=== PATIENT | female | born 1935 | race Caucasian/White ===

== ENCOUNTER → 2016-09-30 | Outpatient (CLI) | payer MEDICARE ==
[~2016-09-30] MED LIST: ANAS1TAB PO; ARIM1TAB PO; ASPI81 PO; CALC500 PO; CENTTAB9 PO; COUM3TAB PO; DILT180C56 PO; HYDR-3533 PO; HYDR12.56 PO; METO100T9 PO; OMEGCAP21 PO; RAMI10CA PO; ROBA500T PO; SIMV20 PO; TAB-TAB PO; TUMS500C CHEW; ULTR50TA PO; ZOFR4TAB PO
[2016-09-30 13:52] LABS: MEAN CORPUSCULAR HEMOGLOBIN 29.6 PG (27.0-34.0); MEAN CORPUSCULAR HGB CONC 33.7 % (32.0-36.0); PLATELET COUNT 238 TH/MM3 (150-450); RED CELL DISTRIBUTION WIDTH 14.5 % (11.6-17.2); REVIEW FLAG FINAL; WHITE BLOOD COUNT 6.4 TH/MM3 (4.0-11.0)
[2016-09-30 14:16] LABS: ALT (GPT) 21 U/L (10-53); ANION GAP 6 MEQ/L (5-15); AST (GOT) 14 U/L (15-37); BICARBONATE 26.6 MEQ/L (21.0-32.0); BLOOD UREA NITROGEN 17 MG/DL (7-18); CHLORIDE 104 MEQ/L (98-107); GLOMERULAR FILTRATION RATE 62 ML/MIN (>89); GLUCOSE,FASTING 87 MG/DL (74-99); SODIUM (NA) 137 MEQ/L (136-145)
[2016-09-30 14:19] LABS: ALKALINE PHOSPHATASE 69 U/L (45-117); HDL CHOLESTEROL 66.1 MG/DL (40.0-60.0); LDL CHOLESTEROL 74 MG/DL (0-99); TOTAL BILIRUBIN ADULT 0.5 MG/DL (0.2-1.0)
== END ==
LOC: PLAB 08:21
PROVIDERS: ATTEND Internal Medicine
DX: I10 Essential (primary) hypertension (principal); E78.5 Hyperlipidemia, unspecified
CPT/HCPCS: 36415; 80053; 80061; 85027

== ENCOUNTER → 2016-11-23 | Outpatient (CLI) | payer MEDICARE ==
[2016-11-23 09:44] LABS: HEMATOCRIT 36.6 % (35.0-46.0); MEAN CELL VOLUME 89.8 FL (80.0-100.0); MEAN CORPUSCULAR HEMOGLOBIN 30.2 PG (27.0-34.0); MEAN CORPUSCULAR HGB CONC 33.6 % (32.0-36.0); PLATELET COUNT 244 TH/MM3 (150-450); RED BLOOD COUNT 4.07 MIL/MM3 (4.00-5.30); RED CELL DISTRIBUTION WIDTH 14.3 % (11.6-17.2); REVIEW FLAG FINAL
[2016-11-23 10:31] LABS: BICARBONATE 29.6 MEQ/L (21.0-32.0); POTASSIUM 3.9 MEQ/L (3.5-5.1)
== END ==
LOC: PLAB 07:54
PROVIDERS: ATTEND Internal Medicine Interventional Cardiology
DX: I48.0 Paroxysmal atrial fibrillation (principal); I11.9 Hypertensive heart disease without heart failure; E78.00 Pure hypercholesterolemia, unspecified
CPT/HCPCS: 36415; 80048; 80061; 84450; 84460; 85027

== ENCOUNTER 2017-01-28 14:49 | Emergency (ER) | payer MEDICARE ==
[~2017-01-28 14:49] MED LIST changes: -HYDR-3533 PO; -ROBA500T PO; -ZOFR4TAB PO
[2017-01-28 14:51] VITALS: BP 167/73; PULSE 60; RESP 20; TEMP 97.7; O2SAT 98
--- NOTE | 2017-01-28 16:58 | PD ---
HPI Chief Complaint: Fall Time Seen by Provider: 16:58 Travel History International Travel<30 days: No Contact w/Intl Traveler<30days: No Traveled to known affect area: No History of Present Illness HPI 82-year-old female with a history of hypertension, CAD, anticoagulated on Coumadin presents to the emergency department for evaluation of right humerus fracture that occurred about 7 hours ago. The patient states that she was taking her to an appointment at the [facility] when she walked into the foyer and slipped on a puddle of water. States that she landed on her right side. States that she landed on her right shoulder but also injured her left hand and left knee. States that she did not hit her head or lose consciousness. She states that she was seen in the emergency department there at the hospital after the fall and was diagnosed with a right humeral head fracture. They also x-rayed her left hand which was unremarkable. States that she was placed in a splint and told to returned to her home town emergency department immediately so that she could see an orthopedic surgeon. She complains of pain in her right shoulder. Denies any headache, dizziness, nausea , vomiting, numbness or tingling, weakness. No other complaints. PFSH Past Medical History Hx Anticoagulant Therapy: Yes (WARFARIN ) Asthma: No Heart Rhythm Problems: Yes Cancer: Yes (colon cancer in 1980, breast cancer in 1989 MELENOMA ARMS) Cardiac Catheterization: Yes (NO STENTS) Cardiovascular Problems: Yes (DC) High Cholesterol: Yes Chemotherapy: Yes Chest Pain: Yes Congestive Heart Failure: No COPD: No Cerebrovascular Accident: No Coronary Artery Disease: Yes Diabetes: No Diminished Hearing: No Endocrine: No Gastrointestinal Disorders: Yes (COLON CANCER 1980) GERD: No Genitourinary: No Headaches: Yes (OCCASIONAL ) Hepatitis: No Hiatal Hernia: No Hypertension: Yes Implanted Vascular Access Dvce: Yes Musculoskeletal: No Neurologic: No Psychiatric: No Respiratory: No Immunizations Current: Yes Migraines: No Myocardial Infarction: Yes (DECEMBER 2007) Radiation Therapy: Yes Renal Failure: No Seizures: No Ulcer: No Menopausal: Yes Past Surgical History Abdominal Surgery: Yes (COLECTOMY IN 1980) Appendectomy: Yes Body Medical Devices: PACEMAKER Cholecystectomy: Yes (IN 1994) Ear Surgery: No Endocrine Surgery: No Eye Surgery: No Genitourinary Surgery: No Gynecologic Surgery: Yes (HYSTERECTOMY) Hysterectomy: Yes Mastectomy: Yes (right and left mastectomy) Neurologic Surgery: No Oral Surgery: No Pacemaker: Yes (inserted october 2013) Thoracic Surgery: Yes (SARMAD. MASTECTOMY IN 2009) Other Surgery: Yes (colon surgery, melanoma removed/arms 2001) Social History Alcohol Use: No Tobacco Use: No Substance Use: No Allergies-Medications (Allergen,Severity, Reaction): Coded Allergies: Lortab (Unverified Allergy, Severe, NAUSEA, 02/01/16) Reported Meds & Prescriptions Reported Meds & Active Scripts Active Zofran (Ondansetron HCl) 4 Mg Tab 4 Mg PO Q6HR PRN Robaxin (Methocarbamol) 500 Mg Tab 500 Mg PO TID 5 Days Lortab (Hydrocodone-Acetaminophen) 5-325 Mg Tab 1 Tab PO Q6H PRN Ultram (Tramadol HCl) 50 Mg Tab 50 Mg PO Q4H PRN Reported Metoprolol Succinate ER 100 mg (Metoprolol Succinate) 100 Mg Tab 50 Mg PO DAILY Arimidex (Anastrozole) 1 Mg Tab 1 Mg PO DAILY Hm Arthur-3-6-9 Fatty Acid (Arthur-3/Arthur-6/Arthur-9 Fatty Acids) Cap 1 Cap PO DAILY Multivitamin (Multivitamins) 1 Tab Tab 1 Tab PO DAILY Tums (Calcium Carbonate) 500 Mg Chw 1 Tabs CHEW TID Anastrozole 1 Mg Tab 1 Mg PO DAILY Hydrochlorothiazide (Miscellaneous Medication) 12.5 Mg Cap 6.25 Mg PO DAILY Diltiazem Cd 180 mg 180 Mg Capcr 180 Mg PO HS Coumadin 3 mg (Warfarin Sodium) 3 Mg Tab 1.5 Mg PO DAILY Centrum (Multivitamins) Tab 1 Tab PO DAILY Oscal 500 (Calcium Carbonate) 500 Mg Tab 500 Mg PO DAILY Zocor (Simvastatin) 20 Mg Tab 20 Mg PO HS Aspirin 81 Mg Tab 81 Mg PO DAILY Altace (Ramipril) 10 Mg Cap 1.25 Mg PO BID Review of Systems Except as stated in HPI: all other systems reviewed are Neg Physical Exam Narrative GENERAL: Well-nourished and well-developed pleasant patient in no acute distress who is nontoxic appearing. SKIN: Warm and dry. HEAD: Normocephalic and atraumatic. EYES: No injection, drainage, or hyphema noted. PERRLA. EOMI. ENT: No nasal drainage noted. Oropharynx is clear. NECK: Supple and the trachea is midline. No obvious deformities, crepitus or midline bony point tenderness. Full range of motion. CARDIOVASCULAR: Regular rate and rhythm. RESPIRATORY: Breath sounds are equal bilaterally with no accessory muscle use, wheezing, rhonchi, or crackles. GASTROINTESTINAL: Abdomen is soft, non-tender, and nondistended. MUSCULOSKELETAL: Tenderness to palpation of right trapezius muscles and right shoulder. Right shoulder is currently in a splint and sling. Radial pulses 2+ bilaterally. Capillary refill is within normal limits. Sensation is intact. Dorsal aspect of left hand has some bruising with tenderness to palpation however patient has full range of motion in all joints of the left hand and fingers with full animal cop strength. No obvious deformities or cyanosis is present throughout the upper and lower extremities. Patient has full range of motion in all extremities with the exception of the right upper extremity. No signs of neurovascular compromise. NEUROLOGICAL: Awake, alert, and oriented. Normal speech and gait. Cranial nerves are grossly intact. Data Data Last Documented VS Vital Signs Date Time Temp Pulse Resp B/P Pulse Ox O2 Delivery O2 Flow Rate FiO2 01/28/17 17:18 60 15 99 Room Air 01/28/17 14:51 97.7 167/73 Orders Shoulder, Limited(2vws) (01/28/17 16:57) Acetamin-Hydrocod 325-5 Mg ([place] 5-325 (01/28/17 17:00) Ondansetron Odt (Zofran Odt) (01/28/17 17:00) MDM Medical Decision Making Medical Screen Exam Complete: Yes Emergency Medical Condition: Yes Differential Diagnosis Fracture versus dislocation versus contusion Narrative Course 82-year-old female persists to the emergency department for evaluation of right humeral head fracture. Patient is afebrile, vital signs are stable. She sustained a trip and fall at the [facility] in [place] 7 hours ago and was evaluated in their emergency department and diagnosed with a right humerus fracture. She is placed in a splint and told to come immediately to her local emergency department to see an orthopedic surgeon. The right upper extremity is neurovascularly intact. There was no head trauma or loss of consciousness. I reviewed the CD of the x-ray from the [facility] which shows a 1 view nondisplaced right humeral head fracture. We will get our own x-rays here to confirm. X-ray of the right shoulder shows humeral neck fracture with possible extension into the articular surface of the humeral head. I discussed case with the orthopedic surgeon on-call and we agree that the patient can remain in a sling and be discharged to follow-up with them as an outpatient in 1 week. Discussed with the patient and family who verbalizes understanding and are in agreement with treatment plan. I discussed the case with my attending physician Dr. Robles who is aware of the patients history, physical examination findings, and treatment plan. Physician Communication Physician Communication I spoke with Dr. Ugalde orthopedic surgeon who recommends sling and outpatient follow-up. Diagnosis Primary Impression: Fracture of neck of right humerus Qualified Code: S42.211A - Fracture of neck of right humerus, closed, initial encounter Referrals: Mauricio Andrews Jr., MD Orthopaedic Surgeon Patient Instructions: Arm Fracture in Adults (ED), General Instructions Additional Instructions: Use sling for immobilization. Take medications as prescribed with food and a full glass of water. Do not take with alcohol or while driving. Please be careful while taking these medications as they can make you drowsy. Follow-up with an orthopedic surgeon in 1 week. Return to the ED for any acute worsening of symptoms. Med/Other Pt SpecificInfo: Prescription(s) given Scripts Ondansetron (Zofran)4 Mg Tab4 Mg PO Q6HR PRN (NAUSEA OR VOMITING) #15 TAB Ref 0 Prov:Nickie Robles DO 01/28/17 Methocarbamol (Robaxin)500 Mg Cup441 Mg PO TID 5 Days Ref 0 Prov:Nickie Robles DO 01/28/17 Hydrocodone-Acetaminophen (Lortab)5-325 Mg Tab1 Tab PO Q6H PRN (PAIN GREATER THAN 6) #20 TAB Ref 0 Prov:Nickie Robles DO 01/28/17 Disposition: 01 DISCHARGE HOME Condition: Stable Sonia Moody Jan 28, 2017 16:58
[2017-01-28] MEDS ORDERED: ONDANSETRON ODT 4 MG TAB PO ONE (17:00)
[2017-01-28] MEDS ORDERED: ACETAMINOPHEN/HYDROcodone 325 MG/5 MG TAB PO ONE ×2 (17:00→20:00)
--- NOTE | 2017-01-28 17:53 | RADRPT ---
EXAM DATE/TIME: 01/28/2017 17:28 [facility] COMPARISON: No previous studies available for comparison. INDICATIONS : Patient reports right shoulder is painful after falling at the [facility]. MEDICAL HISTORY : Cardiovascular disease. Hypertension. SURGICAL HISTORY : Pacemaker. ENCOUNTER: Initial ACUITY: 1 day PAIN SCORE: 8/10 LOCATION: Right shoulder. FINDINGS: 2 views of the right shoulder reveal an acute fracture of the proximal humerus. The fracture involves the humeral neck but there is possible extension to the articular surface of the humeral head. Rotat ion of the film does not allow good visualization of the articular surface of the humeral head. Scapu la is intact. Clavicles intact. Soft tissue swelling noted. Osteopenia observed. Right axillary surgi césar clips. CONCLUSION: Acute proximal humeral fracture as detailed above. Deondre Waldrop Jr., MD on January 28, 2017 at 17:50 Board Certified Radiologist. This report was verified electronically.
[2017-01-28] MEDS ORDERED: HYDR-3533 PO (18:50)
[2017-01-28] MEDS ORDERED: ROBA500T PO (18:50)
[2017-01-28] MEDS ORDERED: ZOFR4TAB PO (18:52)
[2017-01-28 20:15] VITALS: BP 180/76; PULSE 60; RESP 18; O2SAT 100
== END 2017-01-28 20:16 | disposition home or self-care (01) ==
LOC: NEPE 14:49
DX: S42.211A Unspecified displaced fracture of surgical neck of right humerus, initial encounter for closed fracture (principal); W01.0XXA Fall on same level from slipping, tripping and stumbling without subsequent striking against object, initial encounter; Y93.01 Activity, walking, marching and hiking; Y92.238 Other place in hospital as the place of occurrence of the external cause
CPT/HCPCS: 73030; 99284

== ENCOUNTER → 2017-03-08 | Outpatient (CLI) | payer MEDICARE ==
[~2017-03-08] MED LIST changes: +HYDR-3533 PO; +ROBA500T PO; +ZOFR4TAB PO
[2017-03-08 10:04] LABS: INTERNATIONAL NORMALIZED RATIO 4.3 RATIO; PROTHROMBIN TIME - PATIENT 50.9 SEC (9.8-11.6)
[2017-03-08 10:06] LABS: BICARBONATE 29.7 MEQ/L (21.0-32.0)
== END ==
LOC: PLAB 08:05
PROVIDERS: ATTEND Internal Medicine Interventional Cardiology
DX: R60.0 Localized edema (principal); I11.9 Hypertensive heart disease without heart failure; Z79.01 Long term (current) use of anticoagulants
CPT/HCPCS: 36415; 80048; 85610

== ENCOUNTER → 2017-03-23 | Outpatient (CLI) | payer MEDICARE ==
[2017-03-23 13:35] LABS: HEMATOCRIT 36.4 % (35.0-46.0); MEAN CELL VOLUME 90.7 FL (80.0-100.0); MEAN CORPUSCULAR HEMOGLOBIN 29.5 PG (27.0-34.0); MEAN CORPUSCULAR HGB CONC 32.5 % (32.0-36.0); PLATELET COUNT 274 TH/MM3 (150-450); RED BLOOD COUNT 4.01 MIL/MM3 (4.00-5.30); RED CELL DISTRIBUTION WIDTH 14.7 % (11.6-17.2); REVIEW FLAG FINAL; WHITE BLOOD COUNT 6.6 TH/MM3 (4.0-11.0)
[2017-03-23 13:42] LABS: ANION GAP 10 MEQ/L (5-15); AST (GOT) 19 U/L (15-37); BICARBONATE 24.1 MEQ/L (21.0-32.0); BLOOD UREA NITROGEN 28 MG/DL (7-18); CHLORIDE 104 MEQ/L (98-107); GLOMERULAR FILTRATION RATE 59 ML/MIN (>89); GLUCOSE,FASTING 90 MG/DL (74-99); SODIUM (NA) 138 MEQ/L (136-145)
[2017-03-23 13:44] LABS: ALT (GPT) 27 U/L (10-53)
[2017-03-23 13:47] LABS: ALKALINE PHOSPHATASE 82 U/L (45-117); HDL CHOLESTEROL 56.6 MG/DL (40.0-60.0); LDL CHOLESTEROL 65 MG/DL (0-99); LDL CHOLESTEROL DIRECT 73 MG/DL (0-99); TOTAL BILIRUBIN ADULT 0.5 MG/DL (0.2-1.0)
== END ==
LOC: PLAB 08:38
PROVIDERS: ATTEND Internal Medicine
DX: I48.91 Unspecified atrial fibrillation (principal); I51.9 Heart disease, unspecified; I10 Essential (primary) hypertension; E78.5 Hyperlipidemia, unspecified
CPT/HCPCS: 36415; 80053; 80061; 83721; 85027

== ENCOUNTER → 2017-03-29 | Outpatient (CLI) | payer MEDICARE ==
[2017-03-29 12:49] LABS: AUTOMATED NEUTROPHIL # 5.4 TH/MM3 (1.8-7.7); BASOPHIL % 0.3 % (0.0-2.0); EOSINOPHIL # 0.1 TH/MM3 (0-0.4); HEMATOCRIT 35.5 % (35.0-46.0); HEMO FLAGS DIFF FINAL; LYMPH % 19.2 % (9.0-44.0); LYMPHOCYTE # 1.5 TH/MM3 (1.0-4.8); MEAN CORPUSCULAR HEMOGLOBIN 30.2 PG (27.0-34.0); MEAN CORPUSCULAR HGB CONC 33.2 % (32.0-36.0); MONO % 8.8 % (0.0-8.0); NEUT % 70.7 % (16.0-70.0); PLATELET COUNT 251 TH/MM3 (150-450); RED CELL DISTRIBUTION WIDTH 14.9 % (11.6-17.2); WHITE BLOOD COUNT 7.6 TH/MM3 (4.0-11.0)
[2017-03-29 13:09] LABS: BICARBONATE 29.5 MEQ/L (21.0-32.0); POTASSIUM 4.4 MEQ/L (3.5-5.1)
[2017-03-29 13:11] LABS: HDL CHOLESTEROL 51.6 MG/DL (40.0-60.0)
== END ==
LOC: PLAB 08:40
PROVIDERS: ATTEND Internal Medicine Interventional Cardiology
DX: I11.9 Hypertensive heart disease without heart failure (principal); R60.0 Localized edema; I48.0 Paroxysmal atrial fibrillation; E78.00 Pure hypercholesterolemia, unspecified
CPT/HCPCS: 36415; 80048; 80061; 84450; 84460; 85025

== ENCOUNTER → 2017-07-07 | Outpatient (CLI) | payer MEDICARE ==
[2017-07-07 13:51] LABS: BICARBONATE 27.1 MEQ/L (21.0-32.0); POTASSIUM 3.9 MEQ/L (3.5-5.1)
== END ==
LOC: PLAB 07:55
PROVIDERS: ATTEND Internal Medicine Interventional Cardiology
DX: I48.0 Paroxysmal atrial fibrillation (principal); R42 Dizziness and giddiness; I95.1 Orthostatic hypotension
CPT/HCPCS: 36415; 80048

== ENCOUNTER → 2017-09-30 | Outpatient (CLI) | payer MEDICARE ==
[2017-09-30 10:21] LABS: HEMATOCRIT 39.1 % (35.0-46.0); HEMOGLOBIN 13.1 GM/DL (11.6-15.3); MEAN CELL VOLUME 88.5 FL (80.0-100.0); MEAN CORPUSCULAR HEMOGLOBIN 29.7 PG (27.0-34.0); MEAN CORPUSCULAR HGB CONC 33.6 % (32.0-36.0); MEAN PLATELET VOLUME 8.1 FL (7.0-11.0); PLATELET COUNT 135 TH/MM3 (150-450); RED BLOOD COUNT 4.42 MIL/MM3 (4.00-5.30); RED CELL DISTRIBUTION WIDTH 14.1 % (11.6-17.2); WHITE BLOOD COUNT 6.4 TH/MM3 (4.0-11.0)
[2017-09-30 10:42] LABS: ALBUMIN 3.5 GM/DL (3.4-5.0); AST (GOT) 21 U/L (15-37); BICARBONATE 30.8 MEQ/L (21.0-32.0); BLOOD UREA NITROGEN 25 MG/DL (7-18); CALCIUM 9.6 MG/DL (8.5-10.1); CHLORIDE 103 MEQ/L (98-107); CHOLESTEROL 147 MG/DL (120-200); CREATININE 0.89 MG/DL (0.50-1.00); GLOMERULAR FILTRATION RATE 61 ML/MIN (>89); GLUCOSE,FASTING 96 MG/DL (74-99); SODIUM (NA) 139 MEQ/L (136-145)
[2017-09-30 10:46] LABS: ALKALINE PHOSPHATASE 72 U/L (45-117); ALT (GPT) 42 U/L (10-53); CHOLESTEROL/ HDL RATIO 2.95 RATIO; HDL CHOLESTEROL 49.8 MG/DL (40.0-60.0); LDL CHOLESTEROL 76 MG/DL (0-99); LDL CHOLESTEROL DIRECT 83 MG/DL (0-99); TOTAL BILIRUBIN ADULT 0.6 MG/DL (0.2-1.0); TOTAL PROTEIN 7.1 GM/DL (6.4-8.2); TRIGLYCERIDES 105 MG/DL (42-150)
[2017-09-30 13:35] LABS: AMORPHOUS SEDIMENT, URINE RARE; BILIRUBIN, URINE NEG (NEG); BLOOD, URINE NEG (NEG); GLUCOSE,URINE NEG (NEG); HYALINE CAST, URINE 6 /lpf (RARE); KETONE, URINE NEG (NEG); MUCUS URINE FEW /lpf (OCC); NITRITE,URINE NEG (NEG); SQUAMOUS EPITHELIAL CELL URINE 2 /hpf (0-5); TRANSITIONAL EPI CELLS, URINE 1 /hpf; URINE COLOR YELLOW (YELLW/STRAW); URINE LEUKOCYTE ESTERASE LARGE (NEG)
== END ==
LOC: PLAB 07:44
PROVIDERS: ATTEND Internal Medicine
DX: I25.10 Atherosclerotic heart disease of native coronary artery without angina pectoris (principal); I10 Essential (primary) hypertension; E78.5 Hyperlipidemia, unspecified
CPT/HCPCS: 36415; 80053; 80061; 81001; 83721; 85027

== ENCOUNTER → 2017-10-29 | Outpatient (CLI) | payer MEDICARE ==
[2017-10-29 10:25] LABS: BICARBONATE 29.5 MEQ/L (21.0-32.0)
[2017-10-29 10:28] LABS: CREATININE 0.94 MG/DL (0.50-1.00)
[2017-10-29 11:24] LABS: HEMATOCRIT 37.6 % (35.0-46.0); HEMOGLOBIN 12.9 GM/DL (11.6-15.3); MEAN CELL VOLUME 89.2 FL (80.0-100.0); MEAN CORPUSCULAR HEMOGLOBIN 30.5 PG (27.0-34.0); MEAN CORPUSCULAR HGB CONC 34.2 % (32.0-36.0); MEAN PLATELET VOLUME 8.1 FL (7.0-11.0); PLATELET COUNT 134 TH/MM3 (150-450); RED BLOOD COUNT 4.22 MIL/MM3 (4.00-5.30); RED CELL DISTRIBUTION WIDTH 14.1 % (11.6-17.2); WHITE BLOOD COUNT 7.4 TH/MM3 (4.0-11.0)
== END ==
LOC: PLAB 09:24
PROVIDERS: ATTEND Internal Medicine Interventional Cardiology
DX: I50.9 Heart failure, unspecified (principal); I48.0 Paroxysmal atrial fibrillation; R06.02 Shortness of breath; Z79.01 Long term (current) use of anticoagulants
CPT/HCPCS: 36415; 80048; 83880; 85027

== ENCOUNTER → 2017-11-04 | Outpatient (CLI) | payer MEDICARE ==
--- NOTE | 2017-11-09 08:45 | RSPPFT ---
DATE OF PROCEDURE: 11/04/17 COMMENTS: VOLUMES DYNAMIC: FVC and FEV1 normal. STATIC: FRC, RV and TLC normal. FLOWS: FEV1% mildly reduced; FEF 25-75 moderately reduced. DIFFUSION: Low normal. FLOW VOLUME LOOP: Terminal airflow obstruction. IMPRESSION: Mild obstructive ventilatory defect with low normal diffusion, no significant hyperinflation, and minimal improvement post-bronchodilator.
== END ==
LOC: PHRSP 09:19
PROVIDERS: ATTEND Internal Medicine Interventional Cardiology
DX: R06.02 Shortness of breath (principal)
CPT/HCPCS: 36600; 82805; 94060; 94726; 94729

== ENCOUNTER → 2017-11-15 | Outpatient (CLI) | payer MEDICARE ==
[2017-11-15 10:38] LABS: HEMATOCRIT 38.9 % (35.0-46.0); HEMOGLOBIN 12.9 GM/DL (11.6-15.3); MEAN CELL VOLUME 88.9 FL (80.0-100.0); MEAN CORPUSCULAR HEMOGLOBIN 29.5 PG (27.0-34.0); MEAN CORPUSCULAR HGB CONC 33.1 % (32.0-36.0); MEAN PLATELET VOLUME 8.2 FL (7.0-11.0); PLATELET COUNT 127 TH/MM3 (150-450); RED BLOOD COUNT 4.37 MIL/MM3 (4.00-5.30); RED CELL DISTRIBUTION WIDTH 13.7 % (11.6-17.2); WHITE BLOOD COUNT 5.9 TH/MM3 (4.0-11.0)
[2017-11-15 11:06] LABS: BICARBONATE 23.1 MEQ/L (21.0-32.0); CALCIUM 9.5 MG/DL (8.5-10.1); CREATININE 1.43 MG/DL (0.50-1.00)
[2017-11-15 11:09] LABS: CHOLESTEROL/ HDL RATIO 2.97 RATIO; HDL CHOLESTEROL 44.1 MG/DL (40.0-60.0)
== END ==
LOC: PLAB 08:10
PROVIDERS: ATTEND Internal Medicine Interventional Cardiology
DX: I11.9 Hypertensive heart disease without heart failure (principal); I25.10 Atherosclerotic heart disease of native coronary artery without angina pectoris; I48.0 Paroxysmal atrial fibrillation; E78.00 Pure hypercholesterolemia, unspecified; Z79.01 Long term (current) use of anticoagulants
CPT/HCPCS: 36415; 80048; 80061; 84450; 84460; 85027